=== PATIENT | female | born 1955 | race Caucasian/White ===

== ENCOUNTER 2016-08-06 08:53 | Emergency (ER) | payer SELFPAY ==
[~2016-08-06] VITALS: Ht 157.5 cm; Wt 68.2 kg
[2016-08-06] MEDS ORDERED: DILAUDID IV (09:41)
[2016-08-06] MEDS ORDERED: PROCHLORPERAZIN10 MG IV (09:44)
[2016-08-06] MEDS ORDERED: ATIVAN0.5 MG PO (09:45)
[2016-08-06] MEDS ORDERED: HALOPERIDOL1 MG IV (09:46)
[2016-08-06 10:02] LABS: ALBUMIN 3.2 g/dL (3.2-5.0); ALKALINE PHOSPHATASE 602 u/l (38-126); ANION GAP 21 (6-22 (CALC)); BILIRUBIN, TOTAL 1.3 mg/dL (0.0-1.4); BUN 66 mg/dL (8-23); BUN/CREATININE RATIO 53 (12-20 (CALC)); CALCIUM 11.6 mg/dL (8.4-10.2); CARBON DIOXIDE 24 mmol/l (22-30); CHLORIDE 99 mmol/l (95-108); CREATININE 1.3 mg/dL (0.5-1.0); GFR 41 ML/MIN (>=60 (CALC)); GFR FOR AFR.AMER. 50 ML/MIN (>=60 (CALC)); GLUCOSE 108 mg/dL (82-115); LIPASE 73 u/l (23-300); POTASSIUM 5.1 mmol/l (3.5-5.1); SGOT/AST 194 u/l (9-36); SGPT/ALT 45 u/l (11-66); SODIUM 139 mmol/l (137-146); TOTAL PROTEIN 7.4 g/dL (6.3-8.2)
[2016-08-06 10:04] LABS: HEMATOCRIT 37.9 % (37.0-47.0); HEMOGLOBIN 11.5 g/dl (12.0-16.0); IMMATURE GRANULOCYTES 1.5 % (0.0-1.0); MEAN CELL VOLUME 77.2 fL CALC (80.0-100.0); MEAN CORPUSCULAR HGB 23.4 pG CALC (26.0-32.0); MEAN CORPUSCULAR HGB CONC 30.3 g/L CALC (32.0-36.0); NEUT# 20.17 thou/uL (2.00-7.15); RED BLOOD COUNT 4.91 mill/uL (4.20-5.60); RED CELL DISTRI WIDTH 25.1 % (11.5-15.5)
[2016-08-06 10:14] LABS: ACT PARTIAL THROMBO TIME 28.1 SECONDS (20.0-32.5); INTERNATIONAL NORMALIZED RATIO 1.3 RATIO (0.7-1.3); MYOGLOBIN 51 ng/mL (0 - 62); PROTHROMBIN TIME 14.8 SECONDS (9.0-12.5)
[2016-08-06 10:47] LABS: URINE BLOOD DIPSTICK NEGATIVE (NEGATIVE); URINE CLARITY CLEAR; URINE COLOR YELLOW; URINE GLUCOSE - DIPSTICK NEGATIVE (NEGATIVE); URINE KETONE 15 mg/dL (NEGATIVE); URINE LEUK ESTERASE NEGATIVE (NEGATIVE); URINE NITRITE - DIPSTICK NEGATIVE (Negative); URINE PH 5.5 (4.5-8.0); URINE PROTEIN - DIPSTICK NEGATIVE (NEG-TRACE); URINE SPECIFIC GRAVITY 1.025; URINE UROBILINOGEN - DIPSTICK 0.2 E.U./dL (0.2)
[2016-08-06 10:48] LABS: URINE BILIRUBIN - DIPSTICK MODERATE (NEGATIVE)
[2016-08-06 11:39] LABS: TSH, 3RD GENERATION 2.57 uIU/mL (0.47 - 4.68)
[2016-08-06 12:21] VITALS: BP 110/61
== END 2016-08-06 12:25 | disposition short-term general hospital (02) | DRG 872 ==
LOC: ED 08:53
PROVIDERS: Emergency Medicine
DX: A41.9 Sepsis, unspecified organism (principal); C78.7 Secondary malignant neoplasm of liver and intrahepatic bile duct; C78.00 Secondary malignant neoplasm of unspecified lung; C79.89 Secondary malignant neoplasm of other specified sites; R18.8 Other ascites; K92.2 Gastrointestinal hemorrhage, unspecified; C53.9 Malignant neoplasm of cervix uteri, unspecified
CPT/HCPCS: S0164